=== PATIENT | female | born 1965 | race Caucasian/White ===

== ENCOUNTER → 2020-06-03 | Outpatient (CLI) | payer BC ==
--- NOTE | 2020-06-04 03:52 | MR ---
EXAMINATION TYPE: MR brain and iac wo/w con DATE OF EXAM: 06/03/2020 COMPARISON: None HISTORY: Left sided hearing loss CONTRAST: Standard multiplanar, multisequence MRI departmental protocol utilizing 9.5 mL intravenous Gadavist g adolinium contrast. There is mild cerebral atrophy appropriate for age. There is no mass effect nor midline shift. There is no sign of intracranial hemorrhage. There are a few scattered white matter high signal foci at the jenkins-white matter junction of both cerebral hemispheres that measure up to 5 mm. Total number is les s than 10. The brainstem is intact. The corpus callosum appears intact. Sella turcica appears normal. The internal auditory canals appear normal. There is no evidence of cerebellopontine angle mass. Acou stic and vestibular nerves appear normal. There is normal signal pattern in the mastoid sinuses. Diffusion images show no evidence of cortical infarct. The contrast images show no pathologic enhance ment. There is normal enhancement of the venous sinuses. IMPRESSION: No evidence of posterior fossa abnormality. Scattered white matter high signal foci could relate to some mild chronic small vessel ischemia. This is not a pattern of demyelinating disease.
== END | disposition home or self-care (01) ==
LOC: RADMRIMAIN 15:57
PROVIDERS: ATTEND Nurse Practitioner Family
DX: R90.89 Other abnormal findings on diagnostic imaging of central nervous system (principal); H93.12 Tinnitus, left ear; H93.3X2 Disorders of left acoustic nerve; G52.9 Cranial nerve disorder, unspecified; H90.42 Sensorineural hearing loss, unilateral, left ear, with unrestricted hearing on the contralateral side; Z88.1 Allergy status to other antibiotic agents
CPT/HCPCS: 70553

== ENCOUNTER 2020-12-11 07:03 | Emergency (ER) | payer BC ==
[2020-12-11 07:09] VITALS: TEMP 98.1
[2020-12-11] MEDS ORDERED: KETOROLAC 15 MG/ML 1 ML VIAL IM STA (07:22)
--- NOTE | 2020-12-11 07:31 | ED ---
General Adult HPI - General Chief complaint: Extremity Injury, Lower Stated complaint: LT leg injury Time Seen by Provider: 12/11/20 07:10 Source: patient Mode of arrival: ambulatory - History of Present Illness Initial comments: 55-year-old female without any significant past medical history presents to the emergency room for a chief complaint of left leg pain. Patient states she fell about 2 weeks ago and injured the left leg. States it was improving however about 5 days ago she was moving heavy furniture and it started hurting again. Patient states it is from the knee down. States it is the anterior aspect of her leg. Patient denies any pain in the calf or swelling in the calf. Patient denies any weakness of the leg.Patient has no other complaints at this time including shortness of breath, chest pain, abdominal pain, nausea or vomiting, headache, or visual changes. - Related Data Allergies Allergy/AdvReac Type Severity Reaction Status Date / Time tetracycline Allergy Swelling Verified 12/11/20 07:09 Review of Systems ROS Statement: Those systems with pertinent positive or pertinent negative responses have been documented in the HPI. ROS Other: All systems not noted in ROS Statement are negative. Past Medical History Past Medical History: No Reported History History of Any Multi-Drug Resistant Organisms: None Reported Past Surgical History: No Surgical Hx Reported Past Psychological History: Depression Smoking Status: Current every day smoker Past Alcohol Use History: Rare Past Drug Use History: None Reported General Exam General appearance: alert, in no apparent distress Head exam: Present: atraumatic, normocephalic, normal inspection Eye exam: Present: normal appearance, PERRL, EOMI. Absent: scleral icterus, conjunctival injection, periorbital swelling ENT exam: Present: normal exam, mucous membranes moist Neck exam: Present: normal inspection, full ROM. Absent: tenderness, meningismus, lymphadenopathy Respiratory exam: Present: normal lung sounds bilaterally. Absent: respiratory distress, wheezes, rales, rhonchi, stridor Cardiovascular Exam: Present: regular rate, normal rhythm, normal heart sounds. Absent: systolic murmur, diastolic murmur, rubs, gallop, clicks Extremities exam: Present: tenderness (Mild tenderness to the lateral anterior aspect of the left knee. No tib-fib tenderness.), normal capillary refill (Capillary refill less than 2 seconds, DP pulse 2+ left lower extremity.). Absent: full ROM (90 flexion of the left knee, full extension), pedal edema, joint swelling (No edema or erythema), calf tenderness (no calf tenderness, negative Homans sign) Neurological exam: Present: alert Course Vital Signs 12/11/20 07:05 Temperature 98.1 F Pulse Rate 72 Respiratory 18 Rate Blood Pressure 103/70 O2 Sat by Pulse 100 Oximetry Medical Decision Making - Medical Decision Making X-ray of the left knee shows no acute osseous abnormality. There is mild degenerative changes. X-ray of the left tib-fib is normal. Patient likely has soft tissue injury of the left knee. Recommend that she follow up with orthopedics. We will send patient for Tylenol 3 for breakthrough pain. She will return here for any worsening symptoms. Disposition Clinical Impression: Leg pain, left Disposition: HOME SELF-CARE Condition: Good Instructions (If sedation given, give patient instructions): Knee Pain (ED) Additional Instructions: Please take Motrin and Tylenol for pain. If pain is severe take Tylenol [address] or operate machinery while taking Tylenol 3. Follow up with orthopedics. Return to the emergency room for any worsening symptoms such as worsening pain, swelling, or redness of the left leg. Is patient prescribed a controlled substance at d/c from ED?: No Referrals: Juan Zhang DO [Doctor of Osteopathic Medicine] - 1-2 days Time of Disposition: 08:31
--- NOTE | 2020-12-11 08:21 | XR ---
EXAMINATION TYPE: XR tibia fibula LT DATE OF EXAM: 12/11/2020 COMPARISON: None HISTORY: Pain x5 days TECHNIQUE: 2 view left tibia and fibula FINDINGS: No acute fractures or dislocations are evident. Soft tissues are normal. No radiopaque fore ign bodies are evident. The distal fibula is excluded from the [id number]. IMPRESSION: 1. Normal 2 view left tibia and fibula
--- NOTE | 2020-12-11 08:22 | XR ---
EXAMINATION TYPE: XR knee complete LT DATE OF EXAM: 12/11/2020 COMPARISON: None HISTORY: Pain x5 days TECHNIQUE: 3 view left knee FINDINGS: Medial and lateral compartment joint space appear preserved. Patellofemoral joint space katia ears preserved. No joint effusion is evident. No acute fractures or dislocations are evident. Minimal spurring from the medial tibial plateau and m edial femoral condyle is present compatible some mild degenerative change. Follow up exams can be performed 7-10 days from acute trauma for continued pain. IMPRESSION: 1. Mild degenerative change medial compartment. 2. No acute osseous abnormality left knee
[2020-12-11] MEDS ORDERED: ACET/COD 300 MG/30 MG STARTER PACK 6 TAB BTL PO STA (08:32)
[2020-12-11 09:08] VITALS: BP 136/79; PULSE 89; RESP 16
== END 2020-12-11 09:06 | disposition home or self-care (01) ==
LOC: EC 07:03
DX: M25.562 Pain in left knee (principal); M79.605 Pain in left leg; F32.9 Major depressive disorder, single episode, unspecified; F17.200 Nicotine dependence, unspecified, uncomplicated
CPT/HCPCS: 73590; 73562; 99283; 96372; J1885

== ENCOUNTER 2023-04-07 05:19 | Inpatient (IN) | payer BC ==
[2023-04-07 05:34] LABS: Glucose,Whole Blood 139 mg/dL (70-110)
[2023-04-07] MEDS ORDERED: SODIUM CHLORIDE 0.9% 1,000 ML IV STA (05:40)
[2023-04-07] MEDS ORDERED: fentaNYL (PF) 50 MCG/ML 2 ML AMP IVP STA (05:44)
[2023-04-07 06:27] LABS: Basophils % (A) 0 %; Eosinophils # (A) 0.1 k/uL (0-0.7); Eosinophils % (A) 1 %; HCT 37.8 % (34.0-46.0); HGB 12.9 gm/dL (11.4-16.0); Lymphocytes # (A) 1.3 k/uL (1.0-4.8); Lymphocytes % (A) 17 %; MCH 31.3 pg (25.0-35.0); MCV 92.2 fL (80.0-100.0); Mean Platelet Volume 7.1; Monocytes # (A) 0.3 k/uL (0-1.0); Monocytes % (A) 4 %; Neutrophils # (A) 6.2 k/uL (1.3-7.7); Neutrophils % (A) 78 %; Platelet Count 232 k/uL (150-450); RDW 13.2 % (11.5-15.5)
--- NOTE | 2023-04-07 06:30 | CT ---
EXAM: CT Head Without Intravenous Contrast CLINICAL HISTORY: Trauma TECHNIQUE: Axial computed tomography images of the head/brain without intravenous contrast. CTDI is 31.3 mGy and DLP is 794.4 mGy-cm. This CT exam was performed using one or more of the following dose reduction techniques: automated exposure control, adjustment of the mA and/or kV according to patient size, and/or use of iterative reconstruction technique. COMPARISON: Brain MRI dated 06/03/20 FINDINGS: Brain: There is no evidence of acute intracranial hemorrhage. No mass effect. No midline shift. Ventricles: Unremarkable. No ventriculomegaly. Bones/joints: Unremarkable. No acute fracture. Soft tissues: Unremarkable. Sinuses: Complete mucoid or fluid opacification of the right maxillary sinus. Remaining paranasal sinuses are well pneumatized. Mastoid air cells: Unremarkable as visualized. No mastoid effusion. IMPRESSION: There is no evidence of acute intracranial abnormality. EXAM: CT Cervical Spine Without Intravenous Contrast CLINICAL HISTORY: Trauma TECHNIQUE: Axial computed tomography images of the cervical spine without intravenous contrast. CTDI is 31.3 mGy and DLP is 794.4 mGy-cm. This CT exam was performed using one or more of the following dose reduction techniques: automated exposure control, adjustment of the mA and/or kV according to patient size, and/or use of iterative reconstruction technique. COMPARISON: No relevant prior studies available. FINDINGS: Vertebrae: Unremarkable. No acute fracture. No subluxation. Discs/spinal canal/neural foramina: No acute findings. No spinal canal stenosis. Mild multilevel degenerative changes. Soft tissues: Unremarkable. IMPRESSION: No fracture or malalignment of the cervical spine.
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
[2023-04-07 06:38] LABS: ALT 21 U/L (4-34); AST 29 U/L (14-36); African American GFR (CKD) >90 (>60 ml/min/1.73 sqM); Albumin 3.3 g/dL (3.5-5.0); Alcohol <10 mg/dL; Alkaline Phosphatase 75 U/L (38-126); Anion Gap 6 mmol/L; Blood Urea Nitrogen 13 mg/dL (7-17); Calcium 8.3 mg/dL (8.4-10.2); Carbon Dioxide 24 mmol/L (22-30); Chloride 106 mmol/L (98-107); Glucose 137 mg/dL (74-99); Non-African American GFR(CKD) >90 (>60 ml/min/1.73 sqM); Potassium 3.8 mmol/L (3.5-5.1); Sodium 136 mmol/L (137-145); Total Bilirubin 0.4 mg/dL (0.2-1.3); Total Protein 5.8 g/dL (6.3-8.2)
--- NOTE | 2023-04-07 06:44 | CT ---
ADDENDUM - Added by Lamonte Agrawal M.D. on 04/07/2023 7:11 AM (-07:00) There is a mildly displaced acute fracture of the inferior left scapula. EXAM: CT Chest With Intravenous Contrast CLINICAL HISTORY: Trauma TECHNIQUE: Axial computed tomography images of the chest with intravenous contrast. CTDI is 21 mGy and DLP is 1476.7 mGy-cm. This CT exam was performed using one or more of the following dose reduction techniques: automated exposure control, adjustment of the mA and/or kV according to patient size, and/or use of iterative reconstruction technique. COMPARISON: No relevant prior studies available. FINDINGS: Lungs: No evidence of airspace consolidation or pulmonary edema. Questionable mild pulmonary contusions seen along the lateral aspect of the left upper lobe. Pleural space: Unremarkable. No pneumothorax. No significant effusion. Heart: Unremarkable. No cardiomegaly. No significant pericardial effusion. No significant coronary artery calcifications. Bones/joints: Mildly displaced fractures of the lateral left fourth and fifth ribs, as well as nondisplaced fractures of the anterior left second through fifth ribs. Soft tissues: Unremarkable. Vasculature: Unremarkable. No thoracic aortic aneurysm. Lymph nodes: Unremarkable. No enlarged lymph nodes. IMPRESSION: Left-sided rib fractures as described above including mildly displaced fractures of the lateral left fourth and fifth ribs. There is a questionable underlying mild pulmonary contusion within the left upper lobe. No pneumothorax or pleural effusion. EXAM: CT Abdomen and Pelvis With Intravenous Contrast CLINICAL HISTORY: Trauma TECHNIQUE: Axial computed tomography images of the abdomen and pelvis with intravenous contrast. CTDI is 17.6 mGy and DLP is 1476.7 mGy-cm. This CT exam was performed using one or more of the following dose reduction techniques: automated exposure control, adjustment of the mA and/or kV according to patient size, and/or use of iterative reconstruction technique. COMPARISON: No relevant prior studies available. FINDINGS: ABDOMEN: Liver: There is a 2.1 cm left hepatic lobe cyst. No evidence of traumatic injury to the liver. Gallbladder and bile ducts: Unremarkable. No calcified stones. No ductal dilation. Pancreas: Unremarkable. No mass. No ductal dilation. Spleen: Unremarkable. No splenomegaly. Adrenals: Unremarkable. No mass. Kidneys and ureters: Unremarkable. No solid mass. No hydronephrosis. Stomach and bowel: No evidence of bowel obstruction. No bowel wall thickening. Scattered colonic diverticula without evidence of an acute diverticulitis. PELVIS: Appendix: No findings to suggest acute appendicitis. Bladder: Unremarkable. No mass. Reproductive: Partially calcified soft tissue mass within the posterior pelvis measuring up to 9 x 8 cm in maximal transaxial dimensions, most likely an exophytic uterine fibroid. ABDOMEN and PELVIS: Intraperitoneal space: Unremarkable. No free air. No significant fluid collection. Bones/joints: There is a nondisplaced burst fracture through the L4 vertebral body, involving both endplates, with slight buckling of the anterior column. Mild prevertebral soft tissue swelling. Soft tissues: Unremarkable. Vasculature: Unremarkable. No abdominal aortic aneurysm. Lymph nodes: Unremarkable. No enlarged lymph nodes. IMPRESSION: Non-displaced burst fracture through the L4 vertebral body. No evidence of traumatic injury to solid abdominal organs or hollow viscus. Partially calcified soft tissue mass within the posterior pelvis measuring up to 9 cm in diameter is most likely an exophytic uterine fibroid. <MYCVCSECTION> Communications: 04/07/23 07:04 Call From Sulaiman Avery on 04/07 07:04 (-04:00)
[2023-04-07] MEDS ORDERED: HYDROmorphone 0.5 MG/0.5 ML SYRINGE IVP STA ×2 (06:46→06:47)
--- NOTE | 2023-04-07 06:51 | XR ---
EXAM: XR Chest, 1 View CLINICAL HISTORY: Trauma TECHNIQUE: Frontal view of the chest. COMPARISON: No relevant prior studies available. FINDINGS: Lungs: Normal lung volumes. No evidence of airspace consolidation or pulmonary edema. Pleural space: Unremarkable. No pneumothorax. Heart: Unremarkable. No cardiomegaly. Mediastinum: There is no mediastinal widening or shift. Bones/joints: Left-sided rib fractures. IMPRESSION: Left-sided rib fractures. Please see separate CT chest report for additional details. Normal lung volumes without evidence of airspace consolidation or pneumothorax.
--- NOTE | 2023-04-07 06:52 | XR ---
EXAM: XR Pelvis, 1 or 2 Views CLINICAL HISTORY: Trauma TECHNIQUE: Frontal view of the pelvis. COMPARISON: No relevant prior studies available. FINDINGS: Bones/joints: No evidence of acute fracture. No dislocation. Soft tissues: Partially calcified soft tissue mass within the pelvic midline, corresponding to probable exophytic uterine fibroid seen on the abdominal CT. IMPRESSION: No evidence of pelvic fracture or dislocation.
--- NOTE | 2023-04-07 07:27 | XR ---
EXAMINATION TYPE: XR tibia fibula LT DATE OF EXAM: 04/07/2023 7:22 AM INDICATION: Patient age:Female; 57 years old; Reason for study: trauma; H. COMPARISON: Left tibia/fibular radiograph 12/11/20 TECHNIQUE: The left tibia/fibula was examined in AP and lateral projections. FINDINGS: Acute oblique mildly displaced comminuted fracture of the distal left fibular diaphysis abo ve the ankle joint. Additional acute mildly displaced comminuted fracture of the proximal left fibula r metadiaphysis. There is surrounding soft tissue edema. No dislocation. Moderate plantar containing enthesophyte. IMPRESSION: Acute comminuted mildly displaced fractures of the proximal and distal left fibula.
[2023-04-07] MEDS ORDERED: NALOXONE 0.4 MG/ML 1 ML VIAL IV PRN (07:32)
[2023-04-07] MEDS: LACTATED RINGERS 1,000 ML IV SCH ×2 (08:34→17:49)
[2023-04-07 10:10] LABS: INR 0.9 (<1.2); Prothrombin Time 9.9 sec (9.0-12.0)
[2023-04-07 10:16] LABS: Partial Thromboplastin Time 21.5 sec (22.0-30.0)
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
[2023-04-07] MEDS: MORPHINE SULFATE 4 MG/ML SYRINGE IV PRN ×3 (13:42→21:51)
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
[2023-04-07 15:18] LABS: Appearance,Urine Clear (Clear); Bilirubin,Urine Negative (Negative); Blood,Urine Negative (Negative); Color,Urine Yellow; Glucose,Urine (UA) Negative (Negative); Ketones,Urine Trace (Negative); Leukocyte Esterase,Urine Negative (Negative); Nitrite,Urine Negative (Negative); PH, Urine 6.5 (5.0-8.0); Protein,Urine Trace (Negative); Specific Gravity,Urine 1.031 (1.001-1.035); Urobilinogen,Urine <2.0 mg/dL (<2.0)
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
[2023-04-07 15:32] LABS: Amphetamine Screen,Urine Not Detected (NotDetected); Barbiturate Screen,Urine Not Detected (NotDetected); Benzodiazepines Screen,Urine Not Detected (NotDetected); Cocaine Screen,Urine Not Detected (NotDetected); Methadone Screen, Urine Not Detected (NotDetected); Opiate Screen,Urine Detected (NotDetected); Oxycodone Screen, Urine Not Detected (NotDetected); Phencyclidine Screen,Urine Not Detected (NotDetected); Tricyclic Antidepressant,Urine Not Detected (NotDetected); Urn Cannabinoid Scrn Not Detected (NotDetected)
[2023-04-07] MEDS: HEPARIN SODIUM,PORCINE/PF 5,000 UNIT/0.5 ML SYRINGE SQ SCH (17:02)
[2023-04-08] MEDS: HEPARIN SODIUM,PORCINE/PF 5,000 UNIT/0.5 ML SYRINGE SQ SCH ×2 (00:07→07:49)
[2023-04-08] MEDS: LACTATED RINGERS 1,000 ML IV SCH ×3 (00:07→22:08)
[2023-04-08] MEDS: MORPHINE SULFATE 4 MG/ML SYRINGE IV PRN (04:38)
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
[2023-04-08] MEDS: LIDOCAINE 5% PATCH TOPICAL SCH (09:52)
[2023-04-08] MEDS: MELOXICAM 7.5 MG TAB PO SCH (09:52)
[2023-04-08] MEDS: IPRATROPIUM-ALBUTEROL 3 ML NEB INHALATION PRN ×2 (09:56→16:34)
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
[2023-04-08] MEDS: HEPARIN SODIUM,PORCINE 5,000 UNIT/ML 1 ML VIAL SQ SCH (16:16)
[2023-04-08] MEDS: HYDROcodone/APAP 5-325MG 1 EACH TAB PO PRN (17:43)
[2023-04-09] MEDS: HYDROcodone/APAP 5-325MG 1 EACH TAB PO PRN ×2 (00:22→20:04)
[2023-04-09] MEDS: HEPARIN SODIUM,PORCINE 5,000 UNIT/ML 1 ML VIAL SQ SCH ×3 (00:22→18:55)
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
[2023-04-09] MEDS: LIDOCAINE 5% PATCH TOPICAL SCH (09:00)
[2023-04-09] MEDS: MELOXICAM 7.5 MG TAB PO SCH (09:01)
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
[2023-04-09] MEDS: LACTATED RINGERS 1,000 ML IV SCH ×2 (21:53→21:54)
[2023-04-10] MEDS: HEPARIN SODIUM,PORCINE 5,000 UNIT/ML 1 ML VIAL SQ SCH ×4 (03:54→23:51)
[2023-04-10] MEDS: LIDOCAINE 5% PATCH TOPICAL SCH (09:21)
[2023-04-10] MEDS: MELOXICAM 7.5 MG TAB PO SCH (09:21)
--- NOTE | 2023-04-10 10:41 | P.PN ---
Subjective Progress Note Date: 04/10/23 This patient is a 57-year-old female that orthopedic surgery is following for a left fibula fracture. Patient is currently in a splint on the left lower extremity. Her boot has been delivered and is well-fitting, comfortable. The patient states the pain is well-controlled at this time. Patient states plan for discharge to rehab. Objective - Vital Signs Vital signs: Vital Signs Temp 98.7 F 04/10/23 07:03 Pulse 80 04/10/23 07:03 Resp 16 04/10/23 07:03 BP 135/71 04/10/23 07:03 Pulse Ox 93 L 04/10/23 07:03 FiO2 Intake & Output 04/09/23 04/10/23 04/10/23 18:59 06:59 18:59 Output Total 500 1000 Balance -500 -1000 Output: Urine 500 1000 Other: Voiding Method External Catheter - Exam On examination, patient is sitting up in bed in no apparent distress. She is alert and oriented 3. On inspection of the left lower extremity, extremity is immobilized in a short leg splint. The splint is removed and reveals mild swelling of the ankle. No open wounds. The left lower extremity is warm and well-perfused with brisk capillary refill distally. Motor and sensory function is intact of the left lower extremity. Tall CAM boot is placed on the left lower extremity following exam. - Labs CBC & Chem 7: 04/07/23 06:15 04/07/23 06:15 Assessment and Plan Assessment: Left fibula fracture Plan: - Strict nonweightbearing left lower extremity. Patient is to remain immobilized in the CAM boot on the left lower extremity. She may use crutches for ambulation. - We will follow peripherally as she remains inpatient.
--- NOTE | 2023-04-10 15:49 | P.PN ---
Subjective Progress Note Date: 04/10/23 She reports moderate diffuse bodily pain. She has a left lower leg boot. She reports difficulty moving. Recommend assessment for rehab due to limited mobility. Objective - Vital Signs Vital signs: Vital Signs Temp 98.4 F 04/10/23 14:00 Pulse 88 04/10/23 14:00 Resp 16 04/10/23 14:00 BP 99/59 04/10/23 14:00 Pulse Ox 97 04/10/23 14:00 FiO2 Intake & Output 04/09/23 04/10/23 04/10/23 18:59 06:59 18:59 Intake Total 240 Output Total 500 1000 Balance -500 -1000 240 Intake: Oral 240 Output: Urine 500 1000 Other: Voiding Method External Catheter - Labs CBC & Chem 7: 04/07/23 06:15 04/07/23 06:15
[2023-04-10] MEDS: HYDROcodone/APAP 5-325MG 1 EACH TAB PO PRN ×2 (16:03→21:35)
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
[2023-04-10] MEDS: LACTATED RINGERS 1,000 ML IV SCH (17:51)
[2023-04-11] MEDS: LACTATED RINGERS 1,000 ML IV SCH ×3 (01:30→22:28)
[2023-04-11] MEDS: LIDOCAINE 5% PATCH TOPICAL SCH (07:42)
[2023-04-11] MEDS: HEPARIN SODIUM,PORCINE 5,000 UNIT/ML 1 ML VIAL SQ SCH ×3 (07:43→23:11)
[2023-04-11] MEDS: MELOXICAM 7.5 MG TAB PO SCH (07:43)
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
--- NOTE | 2023-04-11 15:12 | P.PN ---
Subjective Progress Note Date: 04/11/23 Resting comfortably No new overnight events PT/OT advised Rehab assessment advised Objective - Vital Signs Vital signs: Vital Signs Temp 98.7 F 04/11/23 13:45 Pulse 95 04/11/23 13:45 Resp 16 04/11/23 13:45 BP 122/71 04/11/23 13:45 Pulse Ox 92 L 04/11/23 13:45 FiO2 Intake & Output 04/10/23 04/11/23 04/11/23 18:59 06:59 18:59 Intake Total 240 Balance 240 Intake: Oral 240 Other: Voiding Method Bedpan External Catheter # Voids 3 2 - Labs CBC & Chem 7: 04/07/23 06:15 04/07/23 06:15
[2023-04-11] MEDS: HYDROcodone/APAP 5-325MG 1 EACH TAB PO PRN (20:09)
[2023-04-12] MEDS: HEPARIN SODIUM,PORCINE 5,000 UNIT/ML 1 ML VIAL SQ SCH ×2 (08:22→15:42)
[2023-04-12] MEDS: MELOXICAM 7.5 MG TAB PO SCH (08:22)
[2023-04-12] MEDS: LIDOCAINE 5% PATCH TOPICAL SCH (08:22)
[2023-04-12] MEDS: LACTATED RINGERS 1,000 ML IV SCH (10:25)
[2023-04-12] MEDS ORDERED: DOCUSATE 100 MG CAP PO SCH (12:30)
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
[2023-04-12 14:46] VITALS: BP 127/73; PULSE 99; RESP 17; TEMP 98.3
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
== END 2023-04-12 17:28 | disposition home or self-care (01) | DRG 551 ==
LOC: EC 05:19 → 2SICU 07:36 → 4SSUR 11:27
PROVIDERS: ADMIT Surgery; ATTEND Surgery
DX: S32.041A Stable burst fracture of fourth lumbar vertebra, initial encounter for closed fracture (principal); J96.01 Acute respiratory failure with hypoxia; S22.42XA Multiple fractures of ribs, left side, initial encounter for closed fracture; S27.321A Contusion of lung, unilateral, initial encounter; V89.2XXA Person injured in unspecified motor-vehicle accident, traffic, initial encounter; S42.192A Fracture of other part of scapula, left shoulder, initial encounter for closed fracture; S82.832A Other fracture of upper and lower end of left fibula, initial encounter for closed fracture; V23.41XA Electric (assisted) bicycle driver injured in collision with car, pick-up truck or van in traffic accident, initial encounter; Y92.410 Unspecified street and highway as the place of occurrence of the external cause; T14.8XXA Other injury of unspecified body region, initial encounter; F17.210 Nicotine dependence, cigarettes, uncomplicated; F32.A Depression, unspecified; Y93.55 Activity, bike riding; Z88.1 Allergy status to other antibiotic agents; J43.9 Emphysema, unspecified; J45.909 Unspecified asthma, uncomplicated
CPT/HCPCS: 36415; 70450; 71045; 71260; 72125; 72170; 74177; 80053; 80306; 80320; 81003; 84484; 85025; 85610; 85730; 86850; 86900; 86901; 93005; 94640; 94760; 96361; 96372; 96374; 96375; 96376; 99291